=== PATIENT | female | born 1995 | race Caucasian/White ===

== ENCOUNTER 2016-11-17 17:50 | Emergency (ER) | payer SELFPAY ==
--- NOTE | 2016-11-20 00:34 | ER ---
ADMIT: 11/17/2016 RM/LOC: ER [facility] MR#: [id number] [address] [address] VICTOR M CAICEDO [address] [place] [id number] Emergency Room Report SEX: F AGE: 21 : 1995 DATE: 11/17/2016 TIME: 1750 hours. Please refer to my T-sheet for complete Briefly, the patient is 21-year-old, comes in short of breath. She has known history of asthma. She actually takes Advair. She also takes inhalers and nebulizer she has been taking, but she has been worse for the last couple weeks. Last several days, has been getting worse. She is coughing and bringing up phlegm. She says when she gets this bad, she normally does better around the antibiotics and steroids. It has been since June of 2016 since her last steroids. PHYSICAL EXAMINATION: VITAL SIGNS: Here; blood pressure 156/84, pulse 91, respirations 16, temp 98.6, and sat 97%. GENERAL: In no acute distress. HEENT: Grossly normal. LUNGS: She does have expiratory wheeze. No accessory muscle use. No respiratory distress. EMERGENCY DEPARTMENT COURSE: We gave her DuoNeb, a shot of Decadron 10 mg IM, Keflex 500 p.o., and she was ready for discharge. ASSESSMENT: 1. Asthma exacerbation. 2. Bronchitis. PLAN: Keflex 500 q.i.d. for 7 days, prednisone 20 b.i.d. for 5 days, continue her nebs. Follow up with [facility]. Return if worse. Twan Freeman MD/ kathie JOB #: [id number] CC: Twan Freeman MD, Attending Physician Rogelio Torrez MD, Family Physician
== END 2016-11-17 18:29 | disposition home or self-care (01) ==
LOC: ER 17:50
DX: J45.901 Unspecified asthma with (acute) exacerbation (principal); Z79.899 Other long term (current) drug therapy

== ENCOUNTER → 2016-12-09 | Outpatient (CLI) | payer SELFPAY | END | disposition home or self-care (01) | DX: J45.901 Unspecified asthma with (acute) exacerbation (principal); J98.09 Other diseases of bronchus, not elsewhere classified; J98.11 Atelectasis ==

== ENCOUNTER 2016-12-16 11:56 | Emergency (ER) | payer SELFPAY ==
--- NOTE | 2017-01-05 15:42 | ER ---
ADMIT: 12/16/2016 RM/LOC: ER [facility] MR#: [id number] [address] [address] VICTOR M CAICEDO [address] [place] [address] Emergency Room Report SEX: F AGE: 21 : 1995 DATE: 12/16/2016 ADDENDUM: This patient comes into the ER because over the last few months she had been having difficulty with asthma attacks. She was told she had a lung infection and is taking doxycycline today. She started having asthma attack, and her breathing treatments at home were not helping her. On physical exam, she is tight, has decreased airway movement. Her pulse ox was 94% on room air. We did do a DuoNeb and a shot of Decadron. When I went to re-evaluate her, she was feeling quite a bit improved. I did do a chest x-ray, which was negative for pneumonia. I will have her continue with the doxycycline. I wrote a prescription for prednisone, and she should continue with her nebulizer treatments. Please see my T-sheet. SHAHRZAD Durham / Russell Segovia MD / kathie JOB #: [id number] CC: Russell Segovia MD, Attending Physician Jennifer Madison, [employer] ARCHITECT-DIRECTOR OF QUALITY CONTROL, Family Physician
== END 2016-12-16 14:30 | disposition home or self-care (01) ==
LOC: ER 11:56
DX: J45.901 Unspecified asthma with (acute) exacerbation (principal); Z79.899 Other long term (current) drug therapy